=== PATIENT | male | born 1960 | race Caucasian/White ===

== ENCOUNTER 2021-10-17 11:00 | Outpatient (CLI) | payer OTHER, SELFPAY ==
--- NOTE | ~2021-10-17 | XR_ITS ---
Mild degenerative change DATE: 10/17/2021 11:42 INDICATION: Right sciatica TECHNIQUE: Standing AP, lateral, coned lateral lumbosacral and bilateral oblique views COMPARISON: 02/23/2017 lumbar spine FINDINGS: There is degenerative spurring of the lower thoracic spine. There is prominent anterior spu rring at L3-4 and mild spurring at the remaining lumbar and lumbosacral interspaces. The lumbar and l umbosacral interspace heights are relatively preserved. No spondylolysis or spondylolisthesis. The lumbar pedicles are intact. No fracture or bone destructio n. The sacroiliac joints are normal. IMPRESSION: Mild degenerative change, relatively stable since 02/23/2017 Reviewed, dictated and finalized at location A.
== END 2021-10-17 11:01 ==
DX: M54.50 Low back pain, unspecified (principal); M54.31 Sciatica, right side
CPT/HCPCS: 72100

== ENCOUNTER 2022-05-19 09:45 | Emergency (ER) | payer OTHER, SELFPAY ==
[2022-05-19 10:09] VITALS: BP 138/87; PULSE 85; RESP 16; TEMP 36.9; O2SAT 97
--- NOTE | 2022-05-19 10:34 | ED.URI ---
HPI - URI/Sore Throat General Chief Complaint: Upper Respiratory Infection Stated Complaint: coughing up phlem, sore throat, ear pain Time Seen by Provider: 05/19/22 10:34 Source: patient and RN notes reviewed Mode of arrival: ambulatory Limitations: no limitations History of Present Illness HPI Narrative: 61-year-old male presents to the [facility] with productive cough, sore throat and ear pain for 2 days. Started taking Claritin yesterday. Has felt feverish Patient reports that his primary care provider always prescribes a Z-Destin or an antibiotic for him to help with his symptoms. Related Data Home Medications Medication Instructions Recorded Confirmed fluticasone propionate 50 50 mcg intranasal DIRECTED 05/19/22 05/19/22 mcg/actuation nasal spray,suspension Allergies Allergy/AdvReac Type Severity Reaction Status Date / Time aspirin Allergy Severe SWELLING Unverified 01/01/19 06:37 Review of Systems Review of Systems: All systems reviewed & are unremarkable except as noted in HPI and below Constitutional: Constitutional: Reports no additional constitutional complaints, Denies chills and Denies fever(s) Eyes: Eyes: Reports no additional eye complaints ENT: Reports as per HPI, Reports nasal congestion and Reports sore throat Cardiovascular: Cardiovascular: Reports no additional cardiovascular complaints Respiratory: Respiratory: Reports no additional respiratory complaints Gastrointestinal: Gastrointestinal: Reports no additional gastrointestinal complaints Musculoskeletal: Musculoskeletal: Reports no additional musculoskeletal complaints Integumentary/Breasts: Skin/Breast: Reports system reviewed and no additional complaints, except as docu Neurologic: Reports system reviewed and no additional complaints, except as documented Psychiatric: Psychiatric: Reports no additional psychiatric complaints Allergic/Immunologic: Allergic/Immunologic: Reports no additional allergic/immunologic complaints PMFSH Past Medical History Medical History Patient denies medical problems Comments At the time of my signature, I reviewed and agree with the nursing past medical, surgical, social, and family history. There is no relevant family history pertinent to the patient complaint. Exam Const: General: healthy appearing, no acute distress, alert and well nourished Nutritional Appearance: well nourished Orientation/consciousness: patient oriented x3 Limitations: no limitations HENMT: Head: normal to inspection Ears: external ears normal, TM's normal bilaterally and EAC's normal Face/Nose/Sinus: Normal external nose present and Normal nares present Face and sinus: normal facial exam Mouth: Yes Normal oral and palatal mucosa present, Yes lip normal and Yes moist mucous membranes Throat: posterior oropharynx normal and uvula midline Eyes: General: appearance normal, both eyes and all related structures Conjunctivae: conjunctivae normal Pupils: Equal, round and reactive pupils present Neck: Neck: normal visual inspection, no lymphadenopathy and no meningeal signs Chest: Chest palpation & inspection: normal inspection of the chest Resp: Effort & Inspection: normal respiratory effort and no use of accessory muscles Auscultation: clear to auscultation bilaterally, no crackles, no rales, no rhonchi and no wheezes Cardio: Rate: regular rate Rhythm: regular rhythm Skin: General skin exam: normal color Rashes: no rashes Wounds: no wounds Neuro: General: patient oriented x3, moves all extremities, no meningeal signs and no focal motor deficits Cranial nerves: Yes Equal, round and reactive pupils present Speech: normal speech Gait exam (Neuro): Normal gait present Extrem: General: normal to inspection, full ROM and capillary refill normal Psych: Appearance: grossly normal and well kempt Mental Status: mental status grossly normal Affect: normal affect
== END 2022-05-19 11:31 | disposition home or self-care (01) ==
PROVIDERS: Emergency Provider Nurse Practitioner; PCP Nurse Practitioner Family
DX: H61.23 Impacted cerumen, bilateral (principal); J06.9 Acute upper respiratory infection, unspecified
CPT/HCPCS: 69209; 87081; 87880; 99213; G0463

== ENCOUNTER → 2023-08-13 10:31 | Outpatient (CLI) | payer OTHER, SELFPAY ==
--- NOTE | ~2023-08-13 | XR_ITS ---
XR lumbar spine min 4V DATE: 08/13/2023 10:51 INDICATION: Low back pain, back muscle spasm. TECHNIQUE: AP, lateral, coned lateral lumbosacral and bilateral oblique views COMPARISON: 10/17/2021 lumbar spine FINDINGS: Diffuse idiopathic skeletal hyperostosis of the lumbar spine. Normal alignment of the lumbar spine, without fracture or bone destruction, spondylolysis or spondylo listhesis. The included lower thoracic and lumbar pedicles are intact. There is preservation of lumbar and lumbosacral interspaces. There is some degenerative spurring, mos t prominent at the anterosuperior L4 vertebral body. The sacroiliac joints are intact. IMPRESSION: Diffuse idiopathic skeletal hyperostosis of the thoracic spine Mild degenerative change of the lumbar spine Reviewed, dictated and finalized at location [facility]. [employer]
== END ==
DX: M54.50 Low back pain, unspecified (principal); M62.830 Muscle spasm of back; M48.14 Ankylosing hyperostosis [Forestier], thoracic region
CPT/HCPCS: 72110

== ENCOUNTER 2023-12-27 06:38 | Day surgery (SDC) | payer OTHER, SELFPAY ==
[2023-10-30 15:28] VITALS: BMI 27.4
[2023-12-13 13:47] VITALS: BMI 27.9
--- NOTE | 2023-12-26 14:51 | P.PNAN_ITS ---
Anes - Initial Pre Proc Eval Procedure: Operation Date: 12/27/23 08:30 Proposed Procedures p Diagnostic Colonoscopy - Nirav Jo MD Date/Time: 12/26/23 14:51 Surgeon: Nirav Jo MD Pre Op Diagnosis: Personal History of Colon Polyps Patient Data Age: 63 Gender: M Height: 1.7 m Weight: 81 kg Allergies Allergy/AdvReac Type Severity Reaction Status Date / Time aspirin Allergy Severe SWELLING Verified 12/27/23 07:10 Home Medications Medication Instructions Recorded Confirmed Type No Home Medications 12/27/23 12/27/23 History Patient hx anesthesia problems: none Family hx anesthesia problems: none Results Review: All pre-operative results and documents have been reviewed as part of the pre- operative evaluation. [facility] Past Medical History Medical History Patient denies medical problems Social History Social History (Updated 12/27/23 @ 07:54 by Hernando Matias DO) Smoking status: Never smoker Alcohol intake: current Alcohol use details: 6 pack/week Substance use: never Substance use type: does not use Living arrangements: alone Spiritual care concerns: No Anes - Eval Final PreProcedure Day of Procedure 12/26/23 14:51 Patient weight: overweight Heart: regular rate and rhythm Lungs: clear to auscultation Airway: Mallampati scale class II Neurological: alert and oriented Last oral intake: >/= 8 hours ASA classification: II Emergent: no Anesthetic plan: proceed Anesthesia type and monitoring: general GIVS and standard monitoring Results Review: All pre-operative results and documents have been reviewed as part of the pre- operative evaluation. Informed Consent: The patient's anesthetic plan and its attendant risks and benefits were discussed with the patient/family/POA. Questions were solicited and answers provided to the satisfaction of the patient/family/POA.
[2023-12-27 07:14] VITALS: BP 139/97; PULSE 54; RESP 14; TEMP 36.8; O2SAT 97
[2023-12-27] MEDS: LACTATED RINGERS 1,000 ML 150 ML IV CONT (07:19)
--- NOTE | 2023-12-27 07:24 | P.HP_ITS ---
History of Present Illness History of Present Illness Consent: Risks, benefits, and alternatives have been discussed and questions answered. Patient agrees to proceed with procedure. Chief complaint: Personal History of Colon Polyps Narrative: Ismael Evangelista is a 63 year old male presents for screening colonoscopy. Patient's current weight appetite and bowel movements are normal. Patient has had colon polyps in the past most recently 2018 and prior to that 2013. Tubular adenomas Were noted the that time. Patient reports that his current weight appetite and bowel movements are normal. Review of Systems 2 Review of Systems: All systems reviewed & are unremarkable except as noted in HPI and below PMFSH Past Medical History Medical History Patient denies medical problems Social History Social History Smoking status: Never smoker Alcohol intake: current Substance use: never Substance use type: does not use Living arrangements: alone Spiritual care concerns: No Meds Home Medications and Allergies Home Medications Medication Instructions Recorded Confirmed Type No Home Medications 12/27/23 12/27/23 History Allergies Allergy/AdvReac Type Severity Reaction Status Date / Time aspirin Allergy Severe SWELLING Verified 12/27/23 07:10 Vital Signs Vital Signs - 24 hr 12/27/23 07:14 Temperature 98.3 F Pulse Rate 54 L Respiratory Rate 14 Blood Pressure 139/97 H Pulse Oximetry 97 Oxygen Delivery Room Air Exam Narrative: Physical exam reveals patient to be alert. Vital signs stable. HEENT exam is unremarkable. Patient is anicteric. Lungs are clear to auscultation and percussion heart is without murmur or extra sounds. Abdomen bowel sounds are present soft nontender with no organomegaly. Digital external rectal exam is normal. Assessment and Plan Assessment and plan (1) History of colon polyps: Code(s): Z86.010 - Personal history of colonic polyps Status: Acute Assessment and Plan: Patient is colon polyps previously. plan for surveillance colonoscopy now and at 5 year intervals.
[2023-12-27 09:05] VITALS: BP 101/57; PULSE 56; RESP 12; O2SAT 98
[2023-12-27 09:15] VITALS: BP 114/65; PULSE 57; RESP 14; O2SAT 97
[2023-12-27 09:25] VITALS: BP 128/80; PULSE 55; RESP 16; O2SAT 97
--- NOTE | 2023-12-27 10:09 | SUR.PHASEII ---
d/c delayed d/t waiting for ride
--- NOTE | 2023-12-27 14:10 | WPDANESPN ---
Anes - Prog Note Post-Op Date/Time: 12/27/23 14:10 Cardiovascular status: normal Respiratory status: normal Airway patency: baseline Mental status: baseline Post-Op hydration status: normal Vital Signs: Last Vital Signs Temp 36.8 C 12/27/23 07:14 Pulse 55 L 12/27/23 09:25 Resp 16 12/27/23 09:25 BP 128/80 12/27/23 09:25 Pulse Ox 97 12/27/23 09:25 O2 Del Method Room Air 12/27/23 09:25 Pain Score (VAS): 0 I/O: Intake & Output 12/26/23 12/27/23 12/27/23 23:59 07:59 15:59 Intake Total 400 Balance 400 Post-procedural complaints: none Patient Feedback: Patient satisfied with anesthetic care. Other Findings: Patient vital signs back to baseline. Patient denies nausea and vomiting. Patient's pain under control. Patient OK for discharge.
== END 2023-12-27 10:05 | disposition home or self-care (01) ==
PROVIDERS: PCP Nurse Practitioner; Visit Provider Internal Medicine Gastroenterology
PROC: 0DJD8ZZ Inspection of Lower Intestinal Tract, Via Natural or Artificial Opening Endoscopic (ICD-10-PCS; CPT 45378; principal; 2023-12-27 08:30)
DX: Z86.010 Personal history of colon polyps (principal); K64.8 Other hemorrhoids
CPT/HCPCS: 45378